=== PATIENT | female | born 2000 | race Caucasian/White ===

== ENCOUNTER → 2023-04-17 | Outpatient (CLI) | payer BC ==
[2023-04-17 11:13] LABS: Basophils # (A) 0.06 X 10*3/uL (0.00-0.10); Basophils % (A) 0.7 %; Eosinophils # (A) 0.06 X 10*3/uL (0.04-0.35); Eosinophils % (A) 0.7 %; HCT 44.7 % (37.2-46.3); HGB 14.6 d/dL (12.0-15.0); Lymphocytes # (A) 4.22 X 10*3/uL (0.90-5.00); MCH 29.8 pg (27.0-32.0); MCHC 32.7 d/dL (32.0-37.0); MCV 91.2 FL (80.0-97.0); Mean Platelet Volume 11.4 FL (9.5-12.2); Monocytes # (A) 0.73 X 10*3/uL (0.20-1.00); NRBC Per 100 WBC 0 X 10*3/uL (0.00-0.01); Neutrophils # (A) 4.08 X 10*3/uL (1.80-7.70); Neutrophils % (A) 44.3 %; Platelet Count 248 X 10*3/uL (140-440); RDW 13.1 % (11.5-14.5); WBC 9.18 X 10*3/uL (4.50-10.00)
[2023-04-17 12:00] LABS: Ferritin 60.6 ng/mL (10.0-291.0); T4, Free (Free Thyroxine) 1.55 ng/dL (0.80-1.80)
== END | disposition home or self-care (01) ==
LOC: LABMAIN 06:03
PROVIDERS: ATTEND Dermatology MOHS-Micrographic Surgery
DX: L65.9 Nonscarring hair loss, unspecified (principal)
CPT/HCPCS: 82306; 82652; 82728; 84439; 84443; 85025